=== PATIENT | male | born 1945 | race Caucasian/White ===

== ENCOUNTER 2016-09-30 21:05 | Inpatient (IN) | payer MEDICARE, OTHER ==
[~2016-09-30] VITALS: Ht 177.8 cm; Wt 83.2 kg
[2016-09-30 21:09] VITALS: BP 169/100; PULSE 111; RESP 16; O2SAT 96
--- NOTE | 2016-09-30 22:16 | ED.REPORT ---
HPI-NVD Date of Service Sep 30, 2016 ED Provider: Kash Chatterjee MD Pt is a 71 y/o male w/ a hx of prior UTI presenting to the ED with family c/o diarrhea onset 2 days ago. Today he developed mild fever, shaking chills, urinary frequency, dysuria, and urinary "dribbling". Pt denies abdominal pain, back pain, bloody stools, vomiting. He has had a UTI previously which is similar to today. Nursing Notes Stated Complaint: FEVER, DIARRHEA, FREQUENT URINATION Chief Complaint: General Complaint Nursing Notes Reviewed: Yes Allergies: Coded Allergies: No Known Allergies (Unverified , 09/30/16) General Time Seen by MD: 22:02 Chief Complaint Diarrhea Hx Obtained From: Patient Arrived By: Walk-in Onset Occurred: 2 days ago Symptom Duration: Since onset Severity: Current: No pain currently Severity: Maximum: No pain Recent Healthcare: Previous diagnosis Similar Sx Previous: Yes Past Medical History Past Medical History Hx UTI Past Surgical History None reported Smoking History Unknown if Ever Smoker Ambulatory Status Independent Review of Systems Constitutional: Reports: Chills, Fever GI: Reports: Diarrhea, Denies: Abdominal pain, Bloody/tarry stool, Vomiting Complete sys rev & neg: except as marked. Male: Reports Dysuria, Reports Urinary frequency, Reports Urinary urgency Physical Exam Initial Vital Signs Vital Signs (First) Date Time Temp Pulse Resp B/P Pulse Ox O2 Delivery O2 Flow Rate FiO2 09/30/16 21:09 37.8 111 16 169/100 96 Room Air Initial VS: Reviewed, Vital signs abnormal Head / Eyes: Atraumatic, Normocephalic, PERRL Respiratory: Breath sounds normal, Clear to auscultation, No respiratory distress Extremities: Vascular intact, Neuro intact, No swelling Neurologic: Alert, Oriented, Nonfocal Psychiatric: Mood/affect normal, Behavior normal, Normal thought content General/Constitutional: Awake, Alert, No acute distress, Cooperative, Not toxic appearing Distress / Hydration: Positive: Dehydration moderate Appearance / Presentation: Positive: Ill appearing/not toxic Hot to touch Abdomen: Atraumatic, Soft, Non-tender, No guarding, No rebound, No distention, No palpable mass ENT: Atraumatic, Airway patent Mouth: Positive: Mucous membranes dry Lips dry Cardiovascular: Regular rhythm, Heart sounds NL, No gallop, No murmurs, No rubs , Cap refill not delayed Heart Rate / Rhythm: Positive: Tachycardia Back: Full range of motion, Painless range of motion, No CVA tenderness Skin: Atraumatic, Color NL, No rash Color / Condition: Positive: Diaphoresis present (mild) Neck: Atraumatic, Supple, No meningismus, Full range of motion, No JVD Interpretation & Diagnostics Lab Results Interpretation Result Diagram: 09/30/16 22009/30/16 220 Test 09/30/16 21:33 09/30/16 22:05 Urine Color Yellow (YELLOW) Urine Appearance Cloudy (CLEAR,HAZY) Urine pH 6.0 (5.0-8.0) Urine Specific [place] 1.005 (1.003-1.035) Urine Protein Negativemg/dL (NEG,TRACE) Urine Glucose (UA) 250mg/dL (NEGATIVE) Urine Ketones Negativemg/dL (NEGATIVE) Urine Occult Blood Small (NEGATIVE) Urine Nitrite Negative (NEGATIVE) Urine Bilirubin Negative (NEGATIVE) Urine Urobilinogen Normalmg/dL (NORMAL) Urine Leukocyte Esterase Large (NEGATIVE) Urine RBC 0-2/hpf (0-2) Urine WBC 11-50/hpf (0-5) Urine Epithelial Cells Few/hpf (NONE-MOD) Urine Crystals None seen (NONE SEEN) Urine Bacteria Few/hpf (NONE-FEW) Urine Hyaline Casts None/lpf (NONE) Urine Granular Casts None seen (NONE SEEN) Urine Waxy Casts None seen (NONE SEEN) Urine Red Blood Cell Casts None seen (NONE SEEN) Urine White Blood Cell Casts None seen (NONE SEEN) Urine Mucus None seen (None Seen) Urine Trichomonas None seen (NONE SEEN) Urine Yeast None (NONE SEEN) Urinalysis Comment None Urine Culture Reflexed Indicated White Blood Count 14.9th/mm3 (3.8-10.1) Red Blood Count 5.19mil/mm3 (4.40-5.80) Hemoglobin 14.8g/dL (13.8-17.2) Hematocrit 43.5% (41.0-50.0) Mean Corpuscular Volume 83.8fL (81-100) Mean Corpuscular Hemoglobin 28.5pg (27.0-35.0) Mean Corpuscular Hemoglobin Concent 34.0% (32.0-37.0) Red Cell Distribution Width 13.6% (12.3-15.4) Platelet Count 181bil/L (150-400) Neutrophils (%) (Auto) 76.1% (40-74) Lymphocytes (%) (Auto) 14.3% (14-46) Monocytes (%) (Auto) 8.7% (4-12) Eosinophils (%) (Auto) 0.6% (0-5) Basophils (%) (Auto) 0.1% (0-3) Hold Purple Top Tube Received (Received) Hold Blue Top Tube Received (Received) Sodium Level 137mEq/L (134-144) Potassium Level 4.1mEq/L (3.5-5.2) Chloride Level 96mEq/L (97-108) Carbon Dioxide Level 23mmol/L (18-29) Blood Urea Nitrogen 16mg/dL (8-27) Creatinine 1.13mg/dL (0.76-1.27) Estimat Glomerular Filtration Rate 68mL/min (>59) Glucose Level 212mg/dL (60-99) Lactic Acid Level 3.2mmol/L (0.4-2.0) Calcium Level 9.7mg/dL (8.5-10.1) Total Bilirubin 1.0mg/dL (0.0-1.2) Aspartate Amino Transf (AST/SGOT) 28U/L (0-50) Alanine Aminotransferase (ALT/SGPT) 25U/L (0-44) Alkaline Phosphatase 82U/L (25-160) Total Protein 7.5g/dL (6.4-8.4) Albumin 4.5g/dL (3.4-5.0) Hold [place] Top Tube Received (Received) Hold [place] Top Tube Received (Received) Re-Eval/Medical Decision Med Decision/Clinical Course 71-year-old male who presents with a couple days of diarrhea. Onset this morning of dysuria followed by shaking riders. He does have a urinary tract infection with evidence of sepsis to include elevated white count at 14,900 and elevated lactic acid at 3.2. He was mildly tachycardic but never hypotensive. He was given 2 L of fluid and 2 g of Rocephin after cultures. His case was discussed with the hospitalist and he will be admitted to the hospitalist service. Please see inpatient chart for details. Re-Evaluation/Progress : Time of Eval: 00:00 Re-Evaluation/Progress Note: Pt rechecked. Informed pt of need for admission for sepsis management. Pt understands and agrees with plan for admission. All questions addressed. Consultation : Referral / Consult Name: Jeramie Gunn MD Consulted With: Hospitalist Call Returned at: 00:22 Clerical Investigator: Will see patient, Agrees with eval, Agrees with plan, Accepts admit Counseled Regarding: Diagnosis, Lab results, Need for admission Discharge & Departure Impression: Primary Impression: Sepsis Sepsis type: sepsis due to unspecified organism Qualified Code: A41.9 - Sepsis, unspecified organism Additional Impression: UTI (urinary tract infection) Urinary tract infection type: site unspecified Hematuria presence: without hematuria Qualified Code: N39.0 - Urinary tract infection, site not specified Disposition: ADMITTED TO HOSPITAL Discharge Condition All VS Reviewed: Yes Condition: Stable Referrals: [facility] Scribe Attestation Portions of this note were transcribed by Ej Gomez. I, Dr. Chatterjee personally performed the history, physical exam and medical decision-making; I reviewed and confirmed the accuracy of the information in the transcribed note. Signed by Rui Link, 09/30/16 - 2229 Kash Chatterjee MD Sep 30, 2016 22:16 EJ GOMEZ Sep 30, 2016 22:20
[2016-09-30 22:20] LABS: APPEARANCE,URINE CLOUDY (CLEAR,HAZY); COLOR,URINE YELLOW (YELLOW); OCCULT BLOOD,URINE SMALL (NEGATIVE); UROBILINOGEN,URINE NORMAL (NORMAL)
[2016-09-30] MEDS ORDERED: cefTRIAXone Inj 2,000 MG in Dextrose 5% Minibag Plus 50 ML IV ONE (22:40)
[2016-09-30] MEDS ORDERED: 0.9% Sodium Chloride 1,000 ML IV ONE (22:40)
[2016-09-30 22:41] LABS: BASOPHILS % (AUTO) 0.1 % (0-3); EOSINOPHILS % (AUTO) 0.6 % (0-5); MONOCYTES % (AUTO) 8.7 % (4-12); Mean Corpuscular Hemoglobin 28.5 pg (27.0-35.0); Mean Corpuscular Volume 83.8 fL (81-100); NEUTROPHILS % (AUTO) 76.1 % (40-74); Platelet Count 181 bil/L (150-400)
[2016-09-30 23:30] VITALS: BP 149/77; PULSE 101; RESP 20; O2SAT 94
[2016-10-01] VITALS (11 sets, daily range): BP systolic 116–167; BP diastolic 53–93; PULSE 77–105; RESP 16–18; O2SAT 92–95
[2016-10-01] MEDS ORDERED: Ondansetron 2 mg/mL 2 mL Inj IVPUSH PRN (00:30)
[2016-10-01] MEDS ORDERED: Alum-Mag Hydrox-Simeth 30 mL Suspension PO PRN (00:30)
[2016-10-01] MEDS ORDERED: Polyethylene Glycol (PEG) 17 Gm Powder PO PRN (00:30)
[2016-10-01] MEDS: 0.9% Sodium Chloride 1,000 ML IV SCH ×3 (01:27→20:21)
[2016-10-01] MEDS: Heparin 5,000 Unit/mL Inj SUBQ SCH ×3 (01:27→16:55)
[2016-10-01] MEDS ORDERED: Glucose 40% Oral Gel 15 Gm Tube PO PRN (01:35)
--- NOTE | 2016-10-01 01:37 | PCM.HPMED ---
Subjective Date of Service Oct 01, 2016 Primary Provider: Admitting Physician: Primary Care Physician: Rajeev Attending Physician: Chief Complaint: Diarrhea, fevers, chills, dysuria History of Present Illness: Patient is a 71 y/o male w/ a hx of diabetes, hyperlipidemia, and prior UTI who presents with fevers, chills, dysuria, and diarrhea. The diarrhea began 2 days ago, which was followed today by a fever, shaking chills, urinary frequency, dysuria, and urinary "dribbling". Pt denies abdominal pain, back pain, bloody stools, nausea/vomiting, or any other complaints. He reports taking an anti- diarrheal medication before coming to the ED, but cannot recall the name. He has had a UTI 10 years ago, but states it was never worked up further. In the ED, temp was 38.1, HR 101, BP 116/53, O2 94 on room air. WBC 14.9 with 76.1% neutrophils. Glucose 212. Lactic acid 3.2. Procalcitonin 0.06. UA showed 11-50 WBCs, negative nitrite, large leukocyte esterase, few bacteria. Review of Systems: Comprehensive review of systems conducted and was negative except for the pertinent positives listed above. Allergies Coded Allergies: No Known Allergies (Unverified , 09/30/16) Home Medications Med Rec not completed PMH Hx UTI 10 years ago Type 2 diabetes Irritable bowel syndrome Hyperlipidemia GERD Surgical History None Family History Mother: of lung cancer (smoker) Father: of unknown cancer Social History Smoking Status: Unknown if Ever Smoker Exam Vital Signs Vital Sign - Last Date Time Temp Pulse Resp B/P Pulse Ox O2 Delivery O2 Flow Rate FiO2 10/01/16 00:22 105 16 116/53 94 Room Air 09/30/16 23:30 38.1 Intake and Output 09/30/16 09/30/16 10/01/16 Cumulative From/Thru 15:00 23:00 07:00 09/30/16 21:09 - 09/30/16 23:45 Intake Total 2000 ml 2000 ml Output Total 300 ml 300 ml Balance 1700 ml 1700 ml Intake IV Total 2000 ml 2000 ml Output Urine Total 300 ml 300 ml # Voids 1 1 Exam General: Alert, Oriented X3, Cooperative, No acute distress. Warm and diaphoretic Head: Normocephalic, atraumatic. External ears normal. Eyes: PERRLA, EOMI. Anicteric sclerae. Mouth: Mouth normal, Mucous membranes moist/pink Neck: Neck supple with full range of motion. Chest& Lungs: Clear to auscultation bilaterally with no crackles, wheezes, or rhonchi. Cardiovascular: Regular rate/rhythm, Normal S1, Normal S2, No murmurs/rubs/ gallops Abdomen: Non-tender, Non-distended, No masses, Normoactive bowel tones, Soft Musculoskeletal: Normal range of motion Extremities: No cyanosis/clubbing/edema bilaterally Neurological: Grossly neurologically intact. Normal speech Lab and Diagnostics Result Diagram: 09/30/16220409/30/162204 Assessment & Plan Patient is a 71 y/o male w/ a hx of diabetes, hyperlipidemia, and prior UTI who presents with fevers, chills, dysuria, and diarrhea. Sepsis, acute. Present on admission. - Pt presents with temp 38.1, HR 101, WBC 14.9 with 76% neutrophils, and lactic acidosis of 3.2. Source UTI vs infectious diarrhea. Will cover with broad spectrum antibiotics for complicated cystitis and diarrhea. - Zosyn IV q12h - NS @ 100 ml/hr - Blood cultures pending Lactic acidosis, acute. Present on admission. - Secondary to sepsis. - Trend lactic acid q2h until normal. Acute complicated cystitis. Present on admission. - Pt is male with prior history of UTI. He has had no workup in the past. - Zosyn IV q12h - Urine culture pending Diarrhea, acute. Present on admission. - No history of recent antibiotic use. Denies hematochezia/melena. Possibly infectious diarrhea given fever. - Stool PCR pending Type 2 diabetes - Glucose 212 on admission. Pt acutely ill, likely eating poorly. Will dose Lantus at half weight-based dose. Reports taking metformin. - A1c ordered - Lantus 8 U qhs - Humalog low dose correctional scale - Hold home metformin Other Chronic Conditions Irritable bowel syndrome Hyperlipidemia GERD NOTE: Med Rec not complete. To be completed by Day Team. - Bowel regimen as needed - Antiemetic as needed Patient is admitted under inpatient status with expected length of stay greater than 2 midnights due to severity of presenting symptoms, risk of adverse event, and complexity of treatment plan. VTE Prophylaxis: Sub-Q Heparin (Unfractionated) Resuscitation Status: DNR/DNI:Do Not Resuscitate/Intubate Delonte Kraft Oct 01, 2016 00:33 Delonte Kraft Oct 01, 2016 00:33 - Lantus 8 U qhs - Humalog low dose correctional scale - Hold home metformin Other Chronic Conditions Irritable bowel syndrome Hyperlipidemia GERD NOTE: Med Rec not complete. To be completed by Day Team. - Bowel regimen as needed - Antiemetic as needed Patient is admitted under inpatient status with expected length of stay greater than 2 midnights due to severity of presenting symptoms, risk of adverse event, and complexity of treatment plan. VTE Prophylaxis: Sub-Q Heparin (Unfractionated) Resuscitation Status: DNR/DNI:Do Not Resuscitate/Intubate Delonte Kraft Oct 01, 2016 00:33
[2016-10-01] MEDS: Insulin GLARgine 100 Unit/mL Syringe SUBQ SCH ×2 (02:22→22:13)
--- NOTE | 2016-10-01 03:10 | NUR ---
Admission Pt arrived alert and oriented x 3 via bernarda at 0115. He was able to ambulate to the bed and onto the scale without issues noted. Pt oriented to telephone, television, bed controls, lights, and bathroom. Pt denies chest pain/pressure, shortness of breath, n/v and abd pain. BG check 180 and 8 units of Lantus given per orders. Staff to ask his to bring in home meds this AM for med reconciliation completion. Pt has c/o urinary frequency and uses urinal independently. Pt wearing non slip socks for safety. Call light within reach. Care continues.
[2016-10-01 05:27] LABS: BASOPHILS % (AUTO) 0.1 % (0-3); EOSINOPHILS % (AUTO) 0.4 % (0-5); Mean Corpuscular Hemoglobin 28.4 pg (27.0-35.0); Mean Corpuscular Volume 84.2 fL (81-100); NEUTROPHILS % (AUTO) 77.4 % (40-74); Platelet Count 164 bil/L (150-400)
[2016-10-01] MEDS: Piperacillin-Tazo 3.375 Gm Inj 3.375 GM in Dextrose 5% Minibag Plus 50 ML IV SCH ×2 (07:42→20:21)
[2016-10-01] MEDS: Insulin LISPRO 300 Unit/3 mL Inj SUBQ SCH ×4 (07:44→22:00)
[2016-10-01] MEDS ORDERED: Potassium Chloride 20 mEq SR Tablet PO ONE (11:00)
--- NOTE | 2016-10-01 11:07 | PCM.PNMED ---
Subjective Date of Service Oct 01, 2016 Subjective Patient is a 71 y/o male w/ a hx of diabetes, hyperlipidemia, and prior UTI who presents with fevers, chills, dysuria, and diarrhea. The diarrhea began 2 days ago, which was followed today by a fever, shaking chills, urinary frequency, dysuria, and urinary "dribbling". Pt denies abdominal pain, back pain, bloody stools, nausea/vomiting, or any other complaints. He reports taking an anti- diarrheal medication before coming to the ED, but cannot recall the name. He has had a UTI 10 years ago, but states it was never worked up further. today diarrhea has resolved. pain much improved. no fevers no chills, toleratin PO intake Exam Vital Signs Vital Sign - Last Date Time Temp Pulse Resp B/P Pulse Ox O2 Delivery O2 Flow Rate FiO2 10/01/16 09:04 37.1 96 18 143/79 92 Room Air Intake and Output 09/30/16 09/30/16 10/01/16 Cumulative From/Thru 15:00 23:00 07:00 09/30/16 21:09 - 10/01/16 05:54 Intake Total 2443 ml 2443 ml Output Total 300 ml 300 ml Balance 2143 ml 2143 ml IV Total 2443 ml 2443 ml Output Urine Total 300 ml 300 ml # Voids 1 1 Exam General: Alert, Oriented X3, Cooperative, No acute distress. Warm and diaphoretic Head: Normocephalic, atraumatic. External ears normal. Eyes: PERRLA, EOMI. Mouth: Mouth normal, Mucous membranes moist/pink Neck: Neck supple with full range of motion. Chest& Lungs: Clear to auscultation bilaterally with no crackles, wheezes, or rhonchi. Cardiovascular: Regular rate/rhythm, Normal S1, Normal S2, No murmurs/rubs/ gallops Abdomen: Non-tender, Non-distended, No masses, Normoactive bowel tones, Soft Musculoskeletal: Normal range of motion Extremities: No cyanosis/clubbing/edema bilaterally Neurological: Grossly neurologically intact. Normal speech IVs and Medications Medications Reviewed: Medications were reviewed in detail Lab and Diagnostics Result Diagram: 10/01/1651410/01/16514 Assessment & Plan Patient is a 71 y/o male w/ a hx of diabetes, hyperlipidemia, and prior UTI who presents with fevers, chills, dysuria, and diarrhea. Sepsis, acute. Present on admission. Improved - Pt presents with temp 38.1, HR 101, WBC 14.9 with 76% neutrophils, and lactic acidosis of 3.2. Source UTI vs infectious diarrhea. Will cover with broad spectrum antibiotics for complicated cystitis and diarrhea. - Zosyn IV q12h - NS @ 100 ml/hr - Blood cultures pending Acute complicated cystitis. Present on admission. - Pt is male with prior history of UTI. He has had no workup in the past. - Zosyn IV q12h - Urine culture pending. will transiton to PO antibiotics on discharge Diarrhea, acute. Present on admission. Now resolved - No history of recent antibiotic use. Denies hematochezia/melena. Possibly infectious diarrhea given fever. - Stool PCR pending Type 2 diabetes - Glucose 212 on admission. Pt acutely ill, likely eating poorly. Will dose Lantus at half weight-based dose. Reports taking metformin. - A1c ordered - Lantus 8 U qhs - Humalog low dose correctional scale - Hold home metformin Other Chronic Conditions Irritable bowel syndrome Hyperlipidemia GERD Disposotion: patient doing much better. Plan to d/c tomorrow once final cultures back - Bowel regimen as needed - Antiemetic as needed Patient is admitted under inpatient status with expected length of stay greater than 2 midnights due to severity of presenting symptoms, risk of adverse event, and complexity of treatment plan. GI Prophylaxis: Not indicated VTE Prophylaxis: Sub-Q Heparin (Unfractionated) Resuscitation Status: CPR: Attempt Resuscitation Time spent 20 Etta Ramirez MD Oct 01, 2016 11:07
[2016-10-01] MEDS ORDERED: OMEP20TA86 PO (14:10)
[2016-10-01] MEDS ORDERED: PARO10TA2 PO (14:10)
[2016-10-01] MEDS ORDERED: METF500T4 PO (14:10)
[2016-10-01] MEDS ORDERED: SIMV20TA4 PO (14:10)
--- NOTE | 2016-10-01 15:19 | NUR ---
Social Work: Initial Assessment Data: Pt is a 71 y/o male admitted for UTI, sepsis. Pt's PCP is not listed, pt's insurance is [facility] Medicare with for life supp. EMR reviewed, readmit score not listed. UPSCALE SECURITY OFFICER met with pt at bedside, role explained. Pt states he lives in [place] with his in a single story home where he uses no DME. Pt is visiting his son and daughter in law and plans to leave in about [address], has no hx of HH or SNF, no LTC. Pt reports that [facility]. UPSCALE SECURITY OFFICER updated UR specialist. Pt reports he has been up in his room. UPSCALE SECURITY OFFICER anticipates not d/c planning needs at this time. UPSCALE SECURITY OFFICER will continue to follow if needs arise. Assessment: Pt who is independent at baseline. Plan: Pt will likely d/c home via POV when medically stable. UPSCALE SECURITY OFFICER anticipates not d/c planning needs at this time. UPSCALE SECURITY OFFICER will continue to follow if needs arise. ALANNAH Sahni Addendum: 10/01/16 at 1534 by DARLIN DUNAWAY Amended: Links added.
--- NOTE | 2016-10-01 17:52 | NUR ---
Shift note Uneventful shift. Pt had no complaints, was cooperative with care.
[2016-10-02 05:40] VITALS: BP 154/89; PULSE 77; RESP 18; O2SAT 92
[2016-10-02 06:02] VITALS: PULSE 72
--- NOTE | 2016-10-02 06:19 | NUR ---
Voiding Continues to c/o urinary frequency and urgency but states slight improvement from admit.
[2016-10-02 06:56] LABS: Mean Corpuscular Volume 85.2 fL (81-100)
[2016-10-02] MEDS: 0.9% Sodium Chloride 1,000 ML IV SCH (07:42)
[2016-10-02] MEDS: Piperacillin-Tazo 3.375 Gm Inj 3.375 GM in Dextrose 5% Minibag Plus 50 ML IV SCH (07:42)
[2016-10-02] MEDS: Heparin 5,000 Unit/mL Inj SUBQ SCH ×2 (07:43)
[2016-10-02] MEDS: Insulin LISPRO 300 Unit/3 mL Inj SUBQ SCH (07:47)
[2016-10-02 08:00] VITALS: PULSE 92
[2016-10-02] MEDS ORDERED: CIPR-198 PO (08:37)
--- NOTE | 2016-10-02 08:39 | PCM.DIMED ---
Discharge Instructions Date of Service Oct 02, 2016 Dates of Hospitalization Oct 01, 2016 at 00:48 Discharge Diagnosis Discharge Diagnosis sepsis UTI Diet Discharge Diet: Diabetic Activity Discharge Activity: No restrictions Call your provider Call your provider for: Fever or Chills, Shortness of breath, Bleeding, Vomitting, Excessive diarrhea Patient Instructions Follow-up with PCP in: 2 weeks Etta Ramirez MD Oct 02, 2016 08:39
--- NOTE | 2016-10-02 08:44 | PCM.DC.MED ---
Discharge Summary Date of Service Oct 02, 2016 Dates of Hospitalization Date of Hospital Admission Oct 01, 2016 at 00:48 Date of Discharge: Oct 02, 2016 Providers: Admitting Physician: Jeramie Gunn MD Primary Care Physician: Rajeev Attending Physician: Sarbjit Ramirez MD Diagnosis at Time of Discharge Diagnosis at Time of Discharge sepsis UTI Brief History Patient is a 71 y/o male w/ a hx of diabetes, hyperlipidemia, and prior UTI who presents with fevers, chills, dysuria, and diarrhea. The diarrhea began 2 days ago, which was followed today by a fever, shaking chills, urinary frequency, dysuria, and urinary "dribbling". Pt denies abdominal pain, back pain, bloody stools, nausea/vomiting, or any other complaints. He reports taking an anti- diarrheal medication before coming to the ED, but cannot recall the name. He has had a UTI 10 years ago, but states it was never worked up further. In the ED, temp was 38.1, HR 101, BP 116/53, O2 94 on room air. WBC 14.9 with 76.1% neutrophils. Glucose 212. Lactic acid 3.2. Procalcitonin 0.06. UA showed 11-50 WBCs, negative nitrite, large leukocyte esterase, few bacteria. Hospital Course Patient is a 71 y/o male w/ a hx of diabetes, hyperlipidemia, and prior UTI who presents with fevers, chills, dysuria, and diarrhea. Sepsis, acute. Present on admission. Improved - Pt presents with temp 38.1, HR 101, WBC 14.9 with 76% neutrophils, and lactic acidosis of 3.2. Source UTI vs infectious diarrhea. Will cover with broad spectrum antibiotics for complicated cystitis and diarrhea. - Zosyn IV q12h - NS @ 100 ml/hr - Blood cultures pending Acute complicated cystitis. Present on admission. - Pt is male with prior history of UTI. He has had no workup in the past. - Zosyn IV q12h - Urine culture pending. will transiton to PO antibiotics on discharge Diarrhea, acute. Present on admission. Now resolved - No history of recent antibiotic use. Denies hematochezia/melena. Possibly infectious diarrhea given fever. - Stool PCR pending Type 2 diabetes - Glucose 212 on admission. Pt acutely ill, likely eating poorly. Will dose Lantus at half weight-based dose. Reports taking metformin. - A1c ordered - Lantus 8 U qhs - Humalog low dose correctional scale - Hold home metformin Other Chronic Conditions Irritable bowel syndrome Hyperlipidemia GERD On the day of discharge patient was doing much better. His vital signs were stable. Over the course of the hospitalization his W BC began to normalize. His sepsis has resolved. Patient's urine culture did come back positive for Escherichia coli. He was initially kept on Zosyn eventually was discharged on oral ciprofloxacin. No issues with oral intake, no issues with bowel or bladder function. Patient is from [place] he will be returning there within the next 1-2 weeks. Was told to follow-up with his primary care provider once he returns. Was instructed on completing the full course of antibiotic prescribed. Patient improved quicker than expected thus his length of stay in the hospital was less than predicted. Exam Vital Signs (Last) Date Time Temp Pulse Resp B/P Pulse Ox O2 Delivery O2 Flow Rate FiO2 10/02/16 06:02 72 10/02/16 05:40 36.7 18 154/89 92 Room Air Exam General: No acute distress cooperative Lungs: no use of accessory muscles Abdomen: Soft nontender nondistended Neurological: Alert and oriented 3 no focal deficits Psychiatric: Appropriate mood and affect Test 09/30/16 21:33 09/30/16 22:05 10/01/16 05:15 10/01/16 10:30 Urine Color Yellow (YELLOW) Urine Appearance Cloudy (CLEAR,HAZY) Urine pH 6.0 (5.0-8.0) Urine Specific [place] 1.005 (1.003-1.035) Urine Protein Negativemg/dL (NEG,TRACE) Urine Glucose (UA) 250mg/dL (NEGATIVE) Urine Ketones Negativemg/dL (NEGATIVE) Urine Occult Blood Small (NEGATIVE) Urine Nitrite Negative (NEGATIVE) Urine Bilirubin Negative (NEGATIVE) Urine Urobilinogen Normalmg/dL (NORMAL) Urine Leukocyte Esterase Large (NEGATIVE) Urine RBC 0-2/hpf (0-2) Urine WBC 11-50/hpf (0-5) Urine Epithelial Cells Few/hpf (NONE-MOD) Urine Crystals None seen (NONE SEEN) Urine Bacteria Few/hpf (NONE-FEW) Urine Hyaline Casts None/lpf (NONE) Urine Granular Casts None seen (NONE SEEN) Urine Waxy Casts None seen (NONE SEEN) Urine Red Blood Cell Casts None seen (NONE SEEN) Urine White Blood Cell Casts None seen (NONE SEEN) Urine Mucus None seen (None Seen) Urine Trichomonas None seen (NONE SEEN) Urine Yeast None (NONE SEEN) Urinalysis Comment None Urine Culture Reflexed Indicated Hold Purple Top Tube Received (Received) Hold Blue Top Tube Received (Received) Procalcitonin 0.06ng/mL (0.00-0.08) Hold [place] Top Tube Received (Received) Hold [place] Top Tube Received (Received) Neutrophils (%) (Auto) 77.4% (40-74) Lymphocytes (%) (Auto) 11.8% (14-46) Monocytes (%) (Auto) 10.0% (4-12) Eosinophils (%) (Auto) 0.4% (0-5) Basophils (%) (Auto) 0.1% (0-3) Total Bilirubin 0.9mg/dL (0.0-1.2) Aspartate Amino Transf (AST/SGOT) 19U/L (0-50) Alanine Aminotransferase (ALT/SGPT) 19U/L (0-44) Alkaline Phosphatase 64U/L (25-160) Total Protein 6.2g/dL (6.4-8.4) Albumin 3.9g/dL (3.4-5.0) Lactic Acid Level 1.7mmol/L (0.4-2.0) Test 10/02/16 05:51 White Blood Count 11.9th/mm3 (3.8-10.1) Red Blood Count 4.47mil/mm3 (4.40-5.80) Hemoglobin 12.5g/dL (13.8-17.2) Hematocrit 38.1% (41.0-50.0) Mean Corpuscular Volume 85.2fL (81-100) Mean Corpuscular Hemoglobin 28.0pg (27.0-35.0) Mean Corpuscular Hemoglobin Concent 32.8% (32.0-37.0) Red Cell Distribution Width 13.8% (12.3-15.4) Platelet Count 169bil/L (150-400) Sodium Level 141mEq/L (134-144) Potassium Level 3.9mEq/L (3.5-5.2) Chloride Level 104mEq/L (97-108) Carbon Dioxide Level 21mmol/L (18-29) Blood Urea Nitrogen 10mg/dL (8-27) Creatinine 0.97mg/dL (0.76-1.27) Estimat Glomerular Filtration Rate 81mL/min (>59) Glucose Level 116mg/dL (60-99) Calcium Level 8.7mg/dL (8.5-10.1) Microbiology Results Microbiology LALO CULT URINE Final 10/02/16-716 Organism 1 ESCHERICHIA COLI U COLONY COUNT/QUANTITY >100,000 CFU/ml Organism 2 MIXED UROGENITAL ANIBAL U COLONY COUNT/QUANTITY 50,000-100,000 CFU/ml Cefazolin-predicts results for the oral agents, cefaclor,cefdinir, cefpodoximen, cefprozil, cefuroximne axetil, cephalexin and loracarbed when used for therapy of uncomplicated UTI's due to E. coli, K. pneumoniae, and Proteus mirabilis. Cefpodoxime, cefdinir and cefuroxime axetil may be tested individually because some isolates may be susceptible to these agents while testing resistant to cefazolin. (CLSI [id number] pg 53) 1. ESCHERICHIA COLI M.I.C Interp --------- ------ * AMOXICILLIN/CLAVULATE 16 I * AMPICILLIN >=32 R * CEFAZOLIN (CEPHALOSPORIN) UTI 4 S * CEFEPIME <=1 S * CEFTRIAXONE <=1 S * CEFUROXIME SODIUM 4 S * CIPROFLOXACIN <=0.25 S * ERTAPENEM <=0.5 S * GENTAMICIN <=1 S * IMIPENEM <=1 S * LEVOFLOXACIN <=0.12 S * NITROFURANTOIN <=16 S * TETRACYCLINE <=1 S * TOBRAMYCIN <=1 S * TRIMETHOPRIM/SULFAMETHOXAZOLE <=20 S Discharge Medications Discharge Medications Ciprofloxacin (Ciprofloxacin) 500 Mg Tablet 500 MG PO BID Prescribed by: SARBJIT RAMIREZ MD Metformin (Metformin) 500 Mg Tablet 500 MG PO BID (Reported) Omeprazole (Omeprazole) 20 Mg Tablet.dr 20 MG PO BID (Reported) Paroxetine (Paroxetine) 10 Mg Tablet 10 MG PO HS (Reported) Simvastatin (Simvastatin) 20 Mg Tablet 20 MG PO HS (Reported) Followup Plan Discharge Diet: Diabetic Discharge Activity: No restrictions Follow-up with PCP in: 2 weeks Sarbjit Ramirez MD Oct 02, 2016 08:44
--- NOTE | 2016-10-02 10:16 | NUR ---
Social Work: Discharge Data: Pt is on day 1 of hospitalization. EMR reviewed. D/C orders are in. Pt discussed in rounds, states no D/C needs at this time. Disposition is home. [employer] will continue to follow if needs arise. Assessment: Pt who is independent at baseline. Plan: Pt will d/c home via POV today with family. MD states no D/C needs at this time. Disposition is home. [employer] will continue to follow if needs arise. ALANNAH Sahni
--- NOTE | 2016-10-02 11:14 | NUR ---
Discharge Went over dc instructions and medication with patient and family who verbally acknowledged understanding. Removed IV and tele box. Pt left on foot with family. No s/s of distress at time of dc.
== END 2016-10-02 11:11 | disposition home or self-care (01) | DRG 872 ==
LOC: SED 21:05 → MPC 10-01 00:48
PROVIDERS: ADMIT Internal Medicine; ATTEND Family Medicine
DX: A41.9 Sepsis, unspecified organism (principal); N30.00 Acute cystitis without hematuria; E87.2 Acidosis; E86.0 Dehydration; E11.9 Type 2 diabetes mellitus without complications; R19.7 Diarrhea, unspecified; Z66 Do not resuscitate